=== PATIENT | female | born 1980 | race Caucasian/White ===

== ENCOUNTER → 2017-04-06 | Outpatient (CLI) | payer OTHER ==
[2017-04-06 15:08] LABS: Potassium 3.9 mmol/L (3.5-5.1)
[2017-04-06 15:25] LABS: T4, Free (Free Thyroxine) 1.02 ng/dL (0.78-2.19)
== END | disposition home or self-care (01) ==
LOC: LABWHC1 14:39
PROVIDERS: ATTEND Otolaryngology
DX: R53.83 Other fatigue (principal)
CPT/HCPCS: 36415; 80051; 84439; 84443; 86376

== ENCOUNTER → 2017-04-14 | Outpatient (CLI) | payer OTHER ==
--- NOTE | 2017-04-15 07:12 | US ---
EXAMINATION TYPE: US thyroid st tissue head/neck DATE OF EXAM: 04/14/2017 COMPARISON: NONE CLINICAL HISTORY: Left Thyroid Nodule E04.1. GLAND SIZE: Right Lobe: 5.0 x 1.5 x 1.3 cm Overall Parenchyma: homogenous Left Lobe: 4.3 x 1.6 x 1.4 cm Overall Parenchyma: homogeneous Isthmus Thickness: 0.3 cm NODULES RIGHT: # of nodules measured on right: 1 1. 0.4 X 0.3 x 0.2 cm hypoechoic mixed nodule at the mid pole with poorly defined margins. This no dule is wider than tall and shows no intranodular vascularity. LEFT: # of nodules measured on left: 2 1. 0.7 X 0.8 x 0.4 cm hypoechoic cystic nodule at the upper pole with well-defined margins. This n odule is wider than tall and shows no intranodular vascularity. 2. 1.1 X 1.1 x 0.8 cm hypoechoic cystic nodule at the mid pole with well-defined margins. This nodu le is wider than tall and shows no intranodular vascularity. ISTHMUS: # of nodules measured in the isthmus: 0 Bilateral neck scanned, no evidence of lymphadenopathy. IMPRESSION: Low suspicion bilateral thyroid nodules, subcentimeter on the right and up to 1.1 cm and the left. An nual surveillance thyroid ultrasound is recommended.
== END | disposition home or self-care (01) ==
LOC: RADUSWWP 16:45
PROVIDERS: ATTEND Otolaryngology
DX: E04.2 Nontoxic multinodular goiter (principal)
CPT/HCPCS: 76536

== ENCOUNTER 2017-04-25 12:06 | Day surgery (SDC) | payer OTHER ==
[2017-04-25 12:50] VITALS: RESP 18; TEMP 98.1
[2017-04-25] MEDS ORDERED: ALPRAZolam 0.5 MG TAB PO STA (12:59)
--- NOTE | 2017-04-25 14:10 | US ---
EXAMINATION TYPE: US FNA thyroid DATE OF EXAM: 04/25/2017 COMPARISON: NONE HISTORY: Thyroid nodule. Maximal barrier technique was utilized. After informed consent, skin overlying the lesion was locali zed with ultrasound and the overlying skin prepped and draped. Ultrasound was utilized using sterile technique. Lidocaine was used for local anesthesia. Two passes with a 25-gauge needle were made and a single pass with a 23 ga into the nodule and aspirated specimen was submitted to cytology. Followi ng the procedure hemostasis achieved. No immediate complication. The patient discharged in stable c ondition. IMPRESSION: STATUS POST ULTRASOUND GUIDED FINE NEEDLE ASPIRATION OF CYSTIC LEFT THYROID NODULE, PATHO LOGY IS PENDING. THIS PROCEDURE WAS PERFORMED BY THE UNDERSIGNED.
[2017-04-25 14:32] VITALS: BP 112/77
== END 2017-04-25 14:00 | disposition home or self-care (01) ==
LOC: RADPROMAIN 12:06
PROVIDERS: ATTEND Otolaryngology
DX: E04.1 Nontoxic single thyroid nodule (principal)
CPT/HCPCS: 10022; 76942; 88173; 88305

== ENCOUNTER → 2022-02-22 | Outpatient (CLI) | payer BC ==
--- NOTE | 2022-02-23 20:03 | MM ---
Reason for Exam: Screening (asymptomatic). Last mammogram was performed 6 year(s) and 10 month(s) ago. Patient History: Menarche at age 11. First Full-Term at age 23. Hormonal Contraceptives, starting at age 25 for 4 years. Last menstrual period: 02/01/2022 Risk Values: Zhane 5 year model risk: 0.9%. NCI Lifetime model risk: 10.7%. Prior Study Comparison: 05/15/2009 Bilateral Diagnostic Mammogram, [facility]. 04/07/2015 Bilateral Diagnostic Mammogram, [facility]. 04/07/2015 Left Diagnostic Ultrasound, [facility]. Tissue Density: The breast tissue is heterogeneously dense. This may lower the sensitivity of mammography. Findings: Analyzed By CAD. Chronic subareolar nodularity right MLO view. There is no suspicious group of microcalcifications or new suspicious mass in either breast. Overall Assessment: Benign, BI-RAD 2 Management: Screening Mammogram of both breasts in 1 year. 1. Patient should continue monthly self breast exams. 2. A clinical breast exam by your physician is recommended on an annual basis. 3. This exam should not preclude additional follow-up of suspicious palpable abnormalities. Electronically signed and approved by: Meena Keene M.D. Radiologist
== END | disposition home or self-care (01) ==
LOC: RADMAMWWP 14:58
PROVIDERS: ATTEND Obstetrics & Gynecology
DX: Z12.31 Encounter for screening mammogram for malignant neoplasm of breast (principal)
CPT/HCPCS: 77063; 77067

== ENCOUNTER → 2024-06-18 | Outpatient (CLI) | payer BC ==
--- NOTE | 2024-06-18 14:00 | US ---
EXAMINATION TYPE: US thyroid st tissue head/neck DATE OF EXAM: 06/18/2024 COMPARISON: NONE CLINICAL INDICATION: Female, 44 years old with history of R22.1 LOCALIZED SWELLING MASS LUMP; Lump po sterior right neck x 1 year. TECHNIQUE: Scanned right posterior neck at patient's palpable area of concern. FINDINGS: Questionable isoechoic area versus normal prominent tissue seen at area of concern: 1.8 x 1.2 x 0.3 cm. IMPRESSION: Small lymph node otherwise unremarkable study. [facility], , 06/18/2024 1:57 PM
== END | disposition home or self-care (01) ==
LOC: RADUSWWP 13:32
PROVIDERS: ATTEND Student in an Organized Health Care Education/Training Program
DX: R22.1 Localized swelling, mass and lump, neck (principal)
CPT/HCPCS: 76536